=== PATIENT | female | born 1980 | race Asian ===

== ENCOUNTER 2016-12-26 16:30 | Inpatient (IN) | payer OTHER ==
[~2016-12-26] VITALS: Ht 158 cm; Wt 67.0 kg
[2016-12-26] MEDS ORDERED: PREN1TAB80 PO (16:44)
[2016-12-26] MEDS ORDERED: RINGERS SOLUTION,LACTATED 1,000 ML IV SCH (18:52)
[2016-12-26] MEDS ORDERED: OXYTOCIN 30 UNITS/LACT RINGERS 500 ML IV ONE ×2 (18:52→20:59)
[2016-12-26] MEDS ORDERED: RINGERS SOLUTION,LACTATED 1,000 ML IV PRN (18:52)
[2016-12-26] MEDS ORDERED: METOCLOPRAMIDE HCL 5 MG/ML 2 ML VIAL IVP PRN (19:00)
[2016-12-26] MEDS ORDERED: FentaNYL CITRATE-PF 100 MCG/2 ML VIAL IVP PRN (19:00)
[2016-12-26] MEDS ORDERED: CITRIC ACID/SODIUM CITRATE 30 ML SOLUTION UDCUP PO PRN (19:00)
[2016-12-26] MEDS ORDERED: AMPICILLIN SODIUM 2 GM/NS 100 ML IV ONE (19:15)
[2016-12-26 19:52] LABS: BASOPHILS % (AUTO) 0.5 % (0.0-2.0); EOSINOPHILS % (AUTO) 0.7 % (1.0-6.0); HEMATOCRIT 31.5 % (36-46); HEMOGLOBIN 10.6 g/dL (12.0-16.0); LYMPHOCYTES # (AUTO) 2.1 K/uL (1.0-4.8); LYMPHOCYTES % (AUTO) 26.5 % (22.0-44.0); MEAN CORPUSCULAR HEMOGLOBIN 31.8 pg (26.0-34.0); MEAN CORPUSCULAR HGB CONC 33.5 G/dL (31.0-37.0); MEAN CORPUSCULAR VOLUME 95 fL (80-100); MONOCYTES # (AUTO) 0.5 K/uL (0.1-1.0); MONOCYTES % (AUTO) 6.3 % (2.0-9.0); NEUTROPHILS # (AUTO) 5.2 K/uL (1.8-7.7); RED BLOOD CELL COUNT(AUTO) 3.32 MIL/uL (4.00-5.20); RED CELL DISTRIBUTION WIDTH 12.8 % (11.5-14.5); WHITE BLOOD COUNT (AUTO) 7.8 K/uL (4.5-11.0)
[2016-12-26] MEDS ORDERED: OXYGEN THERAPY IH SCH (20:00)
[2016-12-26] MEDS ORDERED: LIDOCAINE HCL/PF 1% 30 ML VIAL ONE (20:13)
[2016-12-26] MEDS ORDERED: LIDOCAINE HCL/PF 1% 30 ML VIAL INJ PRN (21:00)
[2016-12-26] MEDS ORDERED: BENZOCAINE 20%/MENTHOL 56 GM SPRAY CANISTER TP PRN (21:00)
[2016-12-26] MEDS ORDERED: GLYCERIN/WITCH HAZEL LEAF 40 PADS JAR TP PRN (21:00)
[2016-12-26] MEDS ORDERED: LANOLIN 7 GM OINTMENT TP PRN (21:00)
[2016-12-26] MEDS ORDERED: OxyCODONE HCL/ACETAMINOPHEN 5-325 MG TABLET PO PRN ×2 (21:00)
[2016-12-26] MEDS ORDERED: RINGERS SOLUTION,LACTATED 1,000 ML IV ONE (21:11)
[2016-12-26] MEDS ORDERED: AMMONIA 1 EA AMP IH ONE (21:13)
[2016-12-26] MEDS: IBUPROFEN 800 MG TABLET PO PRN (23:26)
[2016-12-27] MEDS ORDERED: AMPICILLIN SODIUM 1 GM/NS 50 ML IV SCH
[2016-12-27] MEDS ORDERED: RINGERS SOLUTION,LACTATED 1,000 ML IV ONE (02:15)
[2016-12-27 06:37] LABS: BASOPHILS % (AUTO) 0.3 % (0.0-2.0); EOSINOPHILS % (AUTO) 0.2 % (1.0-6.0); LYMPHOCYTES # (AUTO) 1.8 K/uL (1.0-4.8); LYMPHOCYTES % (AUTO) 16.7 % (22.0-44.0); MEAN CORPUSCULAR HEMOGLOBIN 32.3 pg (26.0-34.0); MEAN CORPUSCULAR HGB CONC 33.8 G/dL (31.0-37.0); MEAN CORPUSCULAR VOLUME 96 fL (80-100); MONOCYTES # (AUTO) 0.5 K/uL (0.1-1.0); NEUTROPHILS # (AUTO) 8.3 K/uL (1.8-7.7); NEUTROPHILS % (AUTO) 77.8 % (40.0-70.0); RED BLOOD CELL COUNT(AUTO) 2.09 MIL/uL (4.00-5.20); WHITE BLOOD COUNT (AUTO) 10.6 K/uL (4.5-11.0)
[2016-12-27 06:58] LABS: HEMATOCRIT 19.9 % (36-46); HEMOGLOBIN 6.7 g/dL (12.0-16.0)
[2016-12-27 08:37] LABS: RBC MORPHOLOGY COMMENT ABNORMAL RBC MORPH
[2016-12-27] MEDS: MAGNESIUM HYDROXIDE SUSPENSION 30 ML UDCUP PO PRN ×2 (09:36→21:22)
[2016-12-27] MEDS ORDERED: SOD FERRIC GLUC COMPLX/SUCROSE 125 MG in SODIUM CHLORIDE 0.9% 100 ML IV ONE (12:00)
[2016-12-27] MEDS: IBUPROFEN 800 MG TABLET PO PRN ×2 (12:24→23:02)
[2016-12-27 13:59] LABS: BASOPHILS % (AUTO) 0.3 % (0.0-2.0); EOSINOPHILS % (AUTO) 0.5 % (1.0-6.0); LYMPHOCYTES # (AUTO) 1.6 K/uL (1.0-4.8); LYMPHOCYTES % (AUTO) 16.3 % (22.0-44.0); MEAN CORPUSCULAR HEMOGLOBIN 31.5 pg (26.0-34.0); MEAN CORPUSCULAR HGB CONC 33.1 G/dL (31.0-37.0); MEAN CORPUSCULAR VOLUME 95 fL (80-100); MONOCYTES # (AUTO) 0.6 K/uL (0.1-1.0); MONOCYTES % (AUTO) 5.7 % (2.0-9.0); NEUTROPHILS # (AUTO) 7.5 K/uL (1.8-7.7); NEUTROPHILS % (AUTO) 77.2 % (40.0-70.0); RED CELL DISTRIBUTION WIDTH 12.9 % (11.5-14.5); WHITE BLOOD COUNT (AUTO) 9.8 K/uL (4.5-11.0)
[2016-12-27 14:03] LABS: HEMOGLOBIN 6.3 g/dL (12.0-16.0)
[2016-12-27 14:23] LABS: RBC MORPHOLOGY COMMENT ABNORMAL RBC MORPH
[2016-12-28] MEDS ORDERED: IBUP-2070 PO (09:14)
[2016-12-28] MEDS ORDERED: DSS100 PO (09:15)
[2016-12-28] MEDS ORDERED: FERR-89 PO (09:16)
== END 2016-12-28 10:00 | disposition home or self-care (01) | DRG 775 ==
LOC: 4S 16:30 → OBSVTOIN 16:30
PROVIDERS: ADMIT Obstetrics & Gynecology; ATTEND Obstetrics & Gynecology
PROC: 10E0XZZ Delivery of Products of Conception, External Approach (ICD-10-PCS; principal; 2016-12-26)
PROC: 0UQMXZZ Repair Vulva, External Approach (ICD-10-PCS; 2016-12-26)
DX: O62.3 Precipitate labor (principal); O71.82 Other specified trauma to perineum and vulva; Z37.0 Single live birth; Z3A.39 39 weeks gestation of pregnancy
CPT/HCPCS: 86850; 86900; 86901; J0290; J2590; J2916; J3010; J3490; J7050; J7120